=== PATIENT | female | born 1960 | race Caucasian/White ===

== ENCOUNTER 2022-10-23 07:01 | Outpatient (CLI) | payer BC, SELFPAY ==
--- NOTE | 2022-10-23 08:28 | W.ANESCHARGE ---
Anesthesia Charges Start Date/Time Anesthesia Start Date: 10/23/22 Anesthesia Start Time: 07:55 Stop Date/Time Anesthesia Stop Date: 10/23/22 Anesthesia Stop Time: 08:25
== END 2022-10-23 07:02 | disposition home or self-care (01) ==
PROVIDERS: PCP Physician Assistant; Visit Provider Internal Medicine Gastroenterology
DX: Z12.11 Encounter for screening for malignant neoplasm of colon (principal); K63.5 Polyp of colon
CPT/HCPCS: 00811; 45385; 88305; J2704

== ENCOUNTER 2022-11-14 16:11 | Outpatient (RCR) | payer BC, SELFPAY | END 2023-01-05 16:20 | disposition home or self-care (01) | PROVIDERS: PCP Physician Assistant; Visit Provider Family Medicine | DX: M18.0 Bilateral primary osteoarthritis of first carpometacarpal joints (principal); Z51.89 Encounter for other specified aftercare | CPT/HCPCS: 97035; 97166 ==

== ENCOUNTER 2023-01-16 09:45 | Outpatient (RCR) | payer BC, SELFPAY | END 2023-04-12 14:12 | disposition home or self-care (01) | PROVIDERS: PCP Physician Assistant; Visit Provider Family Medicine | DX: M79.605 Pain in left leg (principal); M25.552 Pain in left hip; M79.18 Myalgia, other site; M18.0 Bilateral primary osteoarthritis of first carpometacarpal joints; Z51.89 Encounter for other specified aftercare | CPT/HCPCS: 97110; 97140; 97162 ==

== ENCOUNTER 2023-12-24 09:01 | Outpatient (CLI) | payer BC, SELFPAY | END 2023-12-24 09:02 | disposition home or self-care (01) | LOC: WOUND 09:01 | PROVIDERS: PCP Physician Assistant; Visit Provider Nurse Practitioner Family | DX: L76.12 Accidental puncture and laceration of skin and subcutaneous tissue during other procedure (principal) | CPT/HCPCS: G0463 ==

== ENCOUNTER 2024-08-12 09:15 | Outpatient (RCR) | payer BC, SELFPAY | END 2024-08-12 15:08 | disposition home or self-care (01) | PROVIDERS: PCP Physician Assistant | DX: M18.11 Unilateral primary osteoarthritis of first carpometacarpal joint, right hand (principal); M25.641 Stiffness of right hand, not elsewhere classified; M25.631 Stiffness of right wrist, not elsewhere classified; R53.1 Weakness; Z51.89 Encounter for other specified aftercare | CPT/HCPCS: 97035; 97110; 97140; 97165; 97530; L3806; L3913; X5282 ==

== ENCOUNTER 2025-01-18 14:48 | Outpatient (CLI) | payer BC, SELFPAY | END 2025-01-18 14:49 | disposition home or self-care (01) | LOC: AMB 01-20 09:45 | PROVIDERS: PCP Family Medicine; Visit Provider Emergency Medicine Emergency Medical Services | DX: S99.912A Unspecified injury of left ankle, initial encounter (principal); W10.8XXA Fall (on) (from) other stairs and steps, initial encounter; Y92.008 Other place in unspecified non-institutional (private) residence as the place of occurrence of the external cause | CPT/HCPCS: A0425; A0433 ==

== ENCOUNTER 2025-01-18 15:37 | Emergency (ER) | payer BC, SELFPAY ==
[2025-01-18] VITALS (27 sets, daily range): BP systolic 131–157; BP diastolic 56–94; PULSE 87–123; RESP 16; TEMP 35.6; O2SAT 94–100; BMI 33.8
--- NOTE | 2025-01-18 15:40 | CRLHL7_ITS ---
For Patients: As a result of the Century Cures Act, medical imaging exams and procedure reports are released immediately into your electronic medical record. You may view this report before your referring provider. If you have questions, please contact your health care provider. Indication: .FALL, DEFORMITY, ALREADY REDUCED Technique: Views two left ankle. Comparison: None. Findings/Impression: Post splinting and reduction distal fibular and medial malleolar fractures. Associated soft tissue swelling. Bony mineralization is age-appropriate. Dictated by Scott Almanzar MD @ 01/18/2025 4:31:03 PM (Electronically Signed)
--- OUTSIDE RECORDS SUMMARY | 2025-01-18 15:40 | XMS_ITS | Clinical Summary ---
Author Organization [facility] Address [address] [place] [address] Care Team Providers Care Hide And Skin Fleshing Machine Operator Name Role Phone Lizette Kim Nolvia SR. DIRECTOR Unavailable [phone] Unavailable [phone] Remi Adair RN Unavailable China Yu DO Primary Care Provider [phone] Allergies Active Allergy Reactions Criticality Noted Date Comments Amoxicillin Hives 11/13/2007 Amoxicillin-Pot Clavulanate Hives 11/13/19 08 Pseudoephedrine Flushing 11/13/2007 Medications celecoxib (CELEBREX) 100 mg capsuleIndications: Primary osteoarthritis of both first carpometacarpal joints Take 1 Capsule (100 mg) by mouth 2 times daily if needed for Pain. 60 Capsule 2 03/25/20 24 Active cyclobenzaprine 10 mg tabletIndications:N octurnal leg cramps TAKE 1 TABLET(10 MG) BY MOUTH AT BEDTIME NEEDED FOR MUSCLE SPASM. MAY. MAKE YOU DROWSY 60 Tablet 2 07/26/19 25 Active metFORMIN 500 mg Extended-Release tabletIndications:O besity (BMI 30.0-34.9) Take one tablet with your evening meal x 14 days, then increase to two tablets. 180 Tablet 09/18/19 25 Active Additional Information Patient taking differently: 1,000 mg DAILY WITH EVENING MEAL, Take one tablet with your evening meal x 14 days, then increase to two tablets., Reported on 11/26/2024 phentermine (ADIPEX-P) 37.5 mg tabletIndications:O besity (BMI 30.0-34.9) TAKE 1 TABLET(37.5 MG) BY MOUTH DAILY IN THE MORNING 30 Tablet 1 11/18/19 25 Active topiramate 25 mg tabletIndications:O besity (BMI 30.0-34.9) Take 1 Tablet (25 mg) by mouth at bedtime. 90 Tablet 11/27/19 25 Active Active Problems Problem Noted Date Diagnosed Date Obesity (BMI 30.0-34.9) 06/23/2024 Arthritis of carpometacarpal (CMC) joint of righ t thumb 05/27/2024 Class 3 severe obesity witho ut serious comorbidity with body mass index (BMI) of 40.0 to 44.9 in adult, unspecified obesity type 05/12/2024 Colon polyp 10/25/2022 Overview (10/25/2022): Colonoscopy 10/2022 4-TA, repeat in 5 years, propofol Primary osteoarthritis of both first carpometaca rpal joints 10/12/2022 Overview (08/18/2023): October 2022: Right thumb only cortisone injection, has pain in both thumbs. Right thumb pain post injection had prolonged and significant improvement. August 2023: : Right thumb only cortisone injection, has pain in both thumbs. Controlled substance agreement signed 02/07/2022 Overview (02/07/2022): For Medical Weight loss. Verbal agreement. Pharmacy: [facility] [place] Weight gain 02/03/2022 Depression with anxiety 06/28/2021 Dysthymia 04/06/2021 Pap smear for cervical cancer screening 04/06/20 Overview (05/04/2021): 04/06/2021 NIL/HPV Negative. Plan: Routine screening Lumbar radiculopathy 07/03/2019 Sciatica of left side 06/29/2019 Arm pain, diffuse, left 08/06/2018 Post-menopause atrophic vaginitis 07/07/2015 Overview (08/04/2015): Starting premarin cream.DORIS Barlow ....................... 07/07/2015 9:28 AM Happy with resolve of problem. Renewal today.DORIS Barlow ....................... 08/04/2015 2:30 PM Irritability 07/07/2015 Overview (08/04/2015): Starting Citalapram.DORIS Barlow ....................... 07/07/2015 9:28 AM PHQ9 22 LEONIDAS 14.DORIS Barlow ....................... 07/07/2015 9:29 AM PHQ9 down to 3 on re screen 08/04/2015.DORIS Barlow ....................... 08/04/2015 3:06 PM Hypovitaminosis D 07/07/2015 Overview (08/04/2015): Apr Repeat today. 18.3 (on 5000 iu OTC daily little improvement) LEANNE Barlow ....................... 07/07/2015 9:29 AM Begin Vitamin D 50,000 iu for 8 weeks and repeat Vitamin D level end of September and annual April..DORIS Barlow ....................... 08/04/2015 2:31 PM Obesity 05/21/2011 Family hx-breast malignancy 05/21/2011 Resolved Problems Problem Noted Date Diagnosed Date Resolved Date Obesity, Class II, BMI 35-39.9 02/03/2022 06/23/2024 Depression 08/04/2015 08/04/2015 Overview (08/04/2015): PHQ9 07/12/2015 Score 22 PHQ9 08/04/2015 score 3 Encounters Date Type Department Care Team Description 11/26/2024 7:30 AM CDT Telemedicine [facility] [place] [place] [address] [place] [address] Smead, Lizette Nolvia, SR. DIRECTOR Telehealth (No vitals taken); Weight (Follow up) 11/25/2024 8:00 AM CDT Telemedicine [facility] - [facility] [address] [address] Alexia Cerda, RD Medical Nutrition Therapy (Follow up) 11/21/2024 Travel 11/11/2024 Refill [facility] [place] [place] [address] [place] [address] Smead, Lizette Nolvia, SR. DIRECTOR Refill Request (Phentermine) 11/09/2024 Refill [facility] [place] [place] [address] [place] [address] Smead, Lizette Nolvia, SR. DIRECTOR Refill Request (Metformin) from Last 3 Months Immunizations Immunization Administration Dates Next Due COVID-19 vaccine ([facility] 30mcg/0.3mL) PF, MDV 08/16/2020,07/26/2020 Influenza, IIV3 (Age >=3 years) 02/22/2017,01/22,01/31/2011 Influenza, IIV4 03/07/2021,,05/03/2018,2015 Influenza, IIV4 (=>6mos) MDV 02/02/2015 Influenza, IIV4 (Age 6-35 Mos) 02/03/2015 Tdap 04/27/2015,06/30/2008 Zoster (Shingrix-RZV, recombinant) 01/17/2022, Family History Medical History Relation Name Comments Other Brother 1 fibromyalgia Other Brother 2 open heart surg jluis 2 valves replaced Heart attack Father Other Father age 54 of brain aneurysm Cancer-breast Maternal Grandmother Deepa Cancer-colon Maternal Uncle Ben Cancer-breast Mother Faustina 72 Cancer-breast Other maternal cousi n 47 Relation Name Status Comments Brother 1 Alive Brother 2 Father Maternal Grandmother Deepa Maternal Uncle Ben Mother Faustina Other Social History Tobacco Use Types Packs/Day Years Used Date Smoking Tobacco: Never Smokeless Tobacco: Never Tobacco Cessation:Counseling Given: Yes Alcohol Use Standard Drinks/Week Comments Not Currently 0 (1 standard drink = 0.6 oz pur e alcohol) PHQ-2 Answer Date Recorded PHQ-2 TOTAL SCORE 0 06/11/2023 Social Connections Answer Date Recorded Do you often feel lonely or isolated from those around you? 0 06/23/2024 Alcohol Use Answer Date Recorded How often do you have a drink containing alcohol ? 2 07/10/2022 How many drinks containing a lcohol do you have on a typical day when you are drinking? 0 07/10/2022 How often do you have five or more drinks on one occasion? 0 07/10/2022 Financial Resource Strain Answer Date R ecorded Difficulty of Paying Living Expenses 3 06/23/2024 Difficulty of Paying Living Expenses Not on file 06/23/2024 Food Insecurity Answer Date Recorded Do you worry your food will run out before you are able to buy more? 1 06/23/2024 Transportation Needs Answer Date Record ed Does lack of transportation keep you from medica l appointments? 1 06/23/2024 Does lack of transportation keep you from work, meetings or getting things that you need? 1 06/23/2024 Housing Stability Answer Date Recorded What is your housing situation today? 1 06/23/2024 Utilities Answer Date Recorded Do you have trouble paying f or utilities (for example, heat, electricity, water, phone)? 1 06/23/2024 Comments No Sex and Gender Information Value Date Recorded Sex Assigned at Not on file Legal Sex Female 7:01 AM KEY ACCOUNT DIRECTOR Gender Identity Not on file Sexual Orientation Not on file Obstetrics History Para Term AB IAB SAB Ectopic Multiple Livin g Live Births 3 3 3 3 Date Outcome GA Total Labor Labor/2nd/3rd Weight Sex Type Anes PTL Chary A1 A5 Name Clin Term Term Term Last Filed Vital Signs Vital Sign Reading Time Taken Comments Blood Pressure 110/77 09/17/2024 7:00 AM CDT Pulse 81 07/24/2024 3:41 PM CDT patient reported Temperature 36.2 C (97.2 F) 05/27/2024 10:31 AM KEY ACCOUNT DIRECTOR Respiratory Rate 16 05/27/2024 11:2 5 AM KEY ACCOUNT DIRECTOR Oxygen Saturation 98% 06/23/2024 10: 13 AM KEY ACCOUNT DIRECTOR Inhaled Oxygen Concentration - - Weight 81.3 kg (179 lb 3.2 oz) 11/26/2024 7:00 AM CDT Height 157.5 cm (5' 2.01) 11/26/2024 7 :00 AM CDT Body Mass Index 32.77 11/26/2024 7:00 AM CDT Plan of Treatment Health Maintenance Due Date Last Done Comments HIV for age 15-65 11/30/1974 Hepatitis C screening for age 18-79 11/30/1977 Pneumococcal series for age 50+ (1 of 1 - PCV) 11/30/2009 RSV vaccine for adults or (1 - Risk 60-74 years 1-dose series) 2019 Depression screening for age 12+ 06/11/2024 06/11/2023, 06/11/2023, 02/03/2022, Additional history exists DEXA/DXA scan for age 65+ 11/30/2024 COVID-19 vaccine series (2024- season) 2025 03/07/2021, 08/16/2020, 07/26/2020 Influenza Vaccine (#1) 2025 , 02/12/2021, 05/03/2018, Additional history exists Mammogram for age 45-75 03/24/2025 03/24/20 24, 10/13/2022, 02/09/2021, Additional history exists Tetanus booster 04/27/2025 04/27/2015, 06/30/2008 BMI (ht and wt on same day) for age 18+ 11/26/2025 11/26/2024, 11/25/2024, 09/17/2024, Additional history exists Pap test for age 21-65 04/06/2026 , 04/06/2021, 04/27/2015, Additional history exists Lipids for age 45-75 02/08/2027 02/08/2022, 04/06/2021, 04/27/2015 Colonoscopy through age 75 10/24/2027 10/23/2022, Zoster (shingles) series for age 50+ Completed 01/17/2022, 10/11/2021 Hepatitis B series for 19+ Aged Out N o longer eligible based on patient's age to complete this topic Medical Devices Implanted Type Area Irrigation Equipment Installer Device Identifier Shelf Expiration Date Model / Serial / Lot Stent Contour [id number] - [id number] Implanted:Qty: 1 on 11/15/2007 at [facility] Left: Ureter [facility] 10/16/2011 [id number] / / [id number] Screw Bio Tenodesis 3x8mm - [id number] Implanted:Qty: 1 on 05/27/2024 by Derrick Rodrigez MD at [facility] Right: Thumb [employer] 12/05/2027 [id number] / / [id number] Procedures Procedure Name Priority Date/Time Associated Diagnosis Comments XR MAMMO CROW BILAT SCREEN Routine 03/24/2024 7:15 AM KEY ACCOUNT DIRECTOR Encounter for screening mammogram for malignant neoplasm of breast COLONOSCOPY SCREENING Routine 10/23/2022 12:00 AM CDT Screening for colon cancer LIPID PANEL W REFLEX MEASURED LDL Routine 02/08/2022 8:43 AM CDT Obesity, Class II, BMI 35-39.9 Weight gain HPV HIGH RISK Routine 04/06/2021 10:20 AM KEY ACCOUNT DIRECTOR Encounter for screening for cervical cancer from Last 3 Months or Most Recently Relevant to Health Maintenance Results * XR MAMMO CROW BILAT SCREEN (03/24/2024 7:15 AM KEY ACCOUNT DIRECTOR) Anatomical Region Laterality Modality BREASTS, Breast Left, Breast Right Bilateral Mammography Impressions 03/24/2024 3:51 PM KEY ACCOUNT DIRECTOR There is no radiographic evidence for malignancy. Recommend annual mammograms. MAMMOGRAM ASSESSMENT: ACR 1 Negative PATIENTS: You will also receive a letter with your examination results in an easy to read format. If you have questions about your results, please contact your referring provider. Narrative 03/24/2024 3:51 PM KEY ACCOUNT DIRECTOR For Patients: As a result of the Century Cures Act, medical imaging exams and procedure reports are released immediately into your electronic medical record. You may view this report before your referring provider. If you have questions, please contact your health care provider. XR MAMMO CROW BILAT SCREEN [[id number]] CLINICAL HISTORY: This is an asymptomatic 63 y.o. patient. INDICATION FOR EXAM: Mammogram Screening. TECHNIQUE: CC & MLO views were obtained. This study was evaluated with the assistance of Computer-Aided Detection. Breast Tomosynthesis was used in interpretation. COMPARISON FILM: Yes 10/13/22 [facility] 02/09/21 [facility] FINDINGS: There are scattered areas of fibroglandular density. There are no dominant masses, suspicious micro calcifications or areas of architectural distortion. Enrike Ramirez MD MAMMO Final Res ult * COLONOSCOPY SCREENING (10/23/2022 12:00 AM CDT) Yamel DUFFY GI PROCEDURE ORD Final Result * LIPID PANEL W REFLEX MEASURED LDL (02/08/2022 8:43 AM CDT) CHOLESTEROL,TOTAL 189 100 - 199 mg/dL 02/09/2022 5:05 AM CDT [facility] TRIGLYCERIDES 75 <150 mg/dL 02/09/2022 5:05 AM CDT [facility] HDL CHOLESTEROL 49 >40 mg/dL 5:05 AM CDT [facility] NON-HDL CHOLESTEROL 140 <145 mg/dl 02/09/2022 5:05 AM CDT [facility] CHOL/HDL RATIO 3.86 <4.50 02/09/2022 5:05 AM CDT [facility] LDL CHOLESTEROL 125 <=130 mg/dL 02/09/2022 5:05 AM CDT [facility] VLDL CHOLESTEROL 15 <=30 mg/dL 02/09/2022 5:05 AM CDT [facility] PROVIDER ORDERED STATUS RANDOM 02/09/2022 5:05 AM CDT [facility] Blood BLOOD SPECIMEN / Unknown Venipuncture / Unknown 02/08/2022 8:43 AM CDT 02/08/2022 8:45 AM CDT Lizette Kim SR. DIRECTOR CHEMISTRY Final Resul t [facility] [address] [place] [address], * HPV HIGH RISK (04/06/2021 10:20 AM KEY ACCOUNT DIRECTOR) TYPE 16 Negative Negative 04/08/2021 11:36 AM KEY ACCOUNT DIRECTOR [facility] TYPE 18 Negative Negative 04/08/2021 11:36 AM KEY ACCOUNT DIRECTOR [facility] OTHER HIGH RISK TYPES Negative Negative 04/08/2021 11:36 AM KEY ACCOUNT DIRECTOR [facility] Other (Cervical) Non-Blood / Unknown 04/06/2021 10:20 AM KEY ACCOUNT DIRECTOR 04/07/2021 8:47 AM KEY ACCOUNT DIRECTOR Narrative [facility] - 04/08/2021 11:36 AM KEY ACCOUNT DIRECTOR HPV types 16, 18, 31, 33, 35, 39, 45, 51, 52, 56, 58, 59, 66 and 68 DNA were undetectable or below the pre-set threshold. Methodology: Annmarie Jose Luis 4800 HPV Test Zoraida Spence UNDER SEAL OPERATOR MICROBIOLOGY Final Result [facility] [address] [place] [address], from Last 3 Months or Most Recently Relevant to Health Maintenance Insurance [facility] Advance Directives * Full Code (Latest Code Status on File) Date Activated Date Inactivated Comments 05/27/2024 7:15 AM 05/27/2024 4:23 PM Question Answer Comments Code Status Discussion: Reviewed Preferences * Full Code Date Activated Date Inactivated Comments 07/03/2019 1:36 PM 07/04/2019 8:11 PM * Full Code Date Activated Date Inactivated Comments 06/29/2019 5:41 AM 06/30/2019 4:54 PM Care Teams Hide And Skin Fleshing Machine Operator Relationship Specialty Start Date End Date China Yu DO [address] [place] [address] PCP - General Family Practice 06/23/24 Lizette Kim CNS [address] [place] [address] Clinical Nurse Specialist 02/03/[address] [facility] [place] [address] Civil Drafter 02/03/22 Remi Adair, RN [address] [place], [place] [address] Registered Nurse 02/03/22
--- NOTE | 2025-01-18 16:21 | W.ED.CHARTNO ---
ED Chart Note Chart Note Details Date: 01/18/25 Details: I helped the attending physician, patient received medications and went apneic, I was able to bag the patient, saturations got as low as 82% on room air, we inserted a nasal trumpet airway. I was able to bag the patient back up to 99%. Total time attending patient was 30 minutes, due to respiratory arrest is Assessment: Respiratory arrest Plan: Patient now spontaneously breathing, reduction in please see dictation by attending physician. No complications
--- NOTE | 2025-01-18 16:28 | ED.GENADULT ---
HPI - General Adult General Chief complaint: Extremity Pain/Injury, Lower Stated complaint: L ankle injury Time Seen by Provider: 01/18/25 15:40 History of Present Illness HPI narrative: pt. presents to the ED today via EMS after a fall. pt. was carrying a quilt down the stairs got tangled up in the quilt and slipped down approx. 3 stairs. there was obvious deformity in the left ankle when EMS arrived. pt. remembers everything, denies LOC, Thinner, or hitting their head. 64-year-old woman presenting to the emergency department via EMS following an apparent injury to her left ankle. Apparently fell down a few stairs injuring her left ankle noting obvious deformity. This appears to have been a trip and fall type event. She has denied loss of consciousness. Denies head neck or back pain. No abdominal pain. Currently denies any other injuries although is crying out in pain related presumably to the left ankle. Was noted by EMS to have received 50 mcg of fentanyl and 50 mg of ketamine. She was briefly apneic thought secondary to ketamine which improved with initiation of placement of nasal trumpet; this was not ultimately necessary. Denies any medications nor treatable diagnoses. History of surgical repair on the right hand/thumb as indicated later. Denies any cardiac or pulmonary problems. Related Data Home Medications ?Medication ?Instructions ?Recorded ?Confirmed cyclobenzaprine 10 mg tablet 10 mg PO QPM 01/18/25 01/19/25 celecoxib 100 mg capsule 100 mg PO BID 01/19/25 01/19/25 metformin 500 mg tablet,extended mg PO 01/19/25 01/19/25 release 24 hr ondansetron HCl 4 mg tablet mg PO 01/19/25 01/19/25 phentermine 37.5 mg tablet 37.5 mg PO DAILY 01/19/25 01/19/25 topiramate 25 mg tablet 25 mg PO DAILY 01/19/25 01/19/25 triamcinolone acetonide 0.5 % topical 3XD 01/19/25 01/19/25 topical ointment Previous Rx's ?Medication ?Instructions ?Recorded tramadol 50 mg tablet 50 mg PO Q6H PRN pain #20 tabs 01/19/25 Allergies Allergy/AdvReac Type Severity Reaction Status Date / Time amoxicillin Allergy Severe Hives Verified 01/18/25 16:05 clavulanic acid (From Allergy Severe hives Verified 01/18/25 16:05 Augmentin) pseudoephedrine (From Allergy Severe racing Verified 01/18/25 16:05 Sudafed) heart Review of Systems Status of ROS: Reports: 6 or more systems reviewed and unremarkable except as noted in History and below Exam Narrative: Exam Narrative: As noted is crying out in apparent pain. IV was already established with EMS. Placed on oximetry. Appears to be breathing well. Lungs are clear. Heart in elevated to tachycardic rate and regular rhythm. Obviously deformed left ankle with medial aspect of tibia tenting the medial skin. Some bruising here. I do not appreciate any abrasions around the ankle. She does have her shoe in place. Initially did not assess pulses for this reason intense pain. On repeat exam, head is atraumatic. Neck is supple nontender. Back nontender without deformity. No pain to palpation about the abdomen. No pain to palpation about the hips or the right leg or either knee. No discomfort to palpation over the shoulders clavicles or arms. Const: Vital Signs, click to edit/add: Vital Signs - 24 hr 01/18/25 15:40 01/18/25 15:51 01/18/25 15:56 Temperature 96.1 F L Pulse Rate 123 H 114 H Pulse Rate [Pulse Oximeter] 101 H Respiratory Rate 16 Blood Pressure 150/83 H Blood Pressure [Ri ght Upper Arm] 150/83 H Pulse Oximetry 98 94 99 Oxygen Delivery Me thod Nasal Cannula Ambu-Bag Ambu-Bag Oxygen Flow Rate 3 15 15 01/18/25 16:00 01/18/25 16:02 01/18/25 16:12 Temperature Pulse Rate 114 H 112 H 102 H Pulse Rate [Pulse Oximeter] Respiratory Rate Blood Pressure 149/94 H 157/87 H Blood Pressure [Ri ght Upper Arm] Pulse Oximetry 100 95 97 Oxygen Delivery Me thod Ambu-Bag Ambu-Bag Ambu-Bag Oxygen Flow Rate 15 15 15 01/18/25 16:15 01/18/25 16:22 01/18/25 16:30 Temperature Pulse Rate 100 97 96 Pulse Rate [Pulse Oximeter] Respiratory Rate Blood Pressure 155/74 H Blood Pressure [Ri ght Upper Arm] Pulse Oximetry 97 97 97 Oxygen Delivery Me thod Ambu-Bag Ambu-Bag Ambu-Bag Oxygen Flow Rate 15 4 2 01/18/25 16:32 01/18/25 16:42 01/18/25 16:45 Temperature Pulse Rate 97 92 92 Pulse Rate [Pulse Oximeter] Respiratory Rate Blood Pressure 142/75 H 145/77 H Blood Pressure [Ri ght Upper Arm] Pulse Oximetry 96 96 95 Oxygen Delivery Me thod Ambu-Bag Ambu-Bag Ambu-Bag Oxygen Flow Rate 2 2 2 01/18/25 16:52 01/18/25 17:00 01/18/25 17:02 Temperature Pulse Rate 95 91 90 Pulse Rate [Pulse Oximeter] Respiratory Rate Blood Pressure 142/78 H 132/77 Blood Pressure [Ri ght Upper Arm] Pulse Oximetry 97 96 97 Oxygen Delivery Me thod Ambu-Bag Ambu-Bag Ambu-Bag Oxygen Flow Rate 2 2 2 Documenting provider has reviewed patient's vital signs: yes Course Vital Signs Vital signs: Initial Vital Signs Temperature 96.1 F L 01/18/25 15:40 Temperature Source Temporal Artery Scan 01/18/25 15:40 Pulse Rate 101 H 01/18/25 15:40 Respiratory Rate 16 01/18/25 15:40 Blood Pressure 150/83 H 01/18/25 15:40 Blood Pressure Mean 105 01/18/25 15:40 Blood Pressure Position Semi-Fowlers 01/18/25 15:40 Pulse Oximetry 98 01/18/25 15:40 Oxygen Delivery Method Nasal Cannula 01/18/25 15:40 Oxygen Flow Rate 3 01/18/25 15:40 Vital Signs Temperature 96.1 F L 01/18/25 15:40 Pulse Rate 101 H 01/18/25 15:40 Respiratory Rate 16 01/18/25 15:40 Blood Pressure 150/83 H 01/18/25 15:40 Pulse Oximetry 98 01/18/25 15:40 Oxygen Delivery Method Nasal Cannula 01/18/25 15:40 Oxygen Flow Rate 3 01/18/25 15:40 Temperature 96.1 F L 01/18/25 15:40 Pulse Rate 90 01/18/25 18:45 Respiratory Rate 16 01/18/25 15:40 Blood Pressure 136/56 L 01/18/25 17:42 Pulse Oximetry 95 01/18/25 18:45 Oxygen Delivery Method Nasal Cannula 01/18/25 18:02 Oxygen Flow Rate 2 01/18/25 18:02 Medications Administered Medications: Discontinued Medications Generic Name Dose Route Start Last Admin Trade Name Ada PRN Reason Stop Dose Admin Fentanyl 100 mcg 01/18/25 15:40 01/18/25 15:50 Fentanyl 100 Mcg/2 Ml Inj IVP 01/18/25 15:41 50 mcg ONCE ONE Administration Sodium Chloride 1,000 mls @ 1,000 mls/hr 01/18/25 15:42 01/18/25 18:50 0.9 % Sodium Chloride 1000 Ml IV 01/18/25 16:41 Infused .Q1H ONE Infusion Ketamine HCl 50 mg 01/18/25 15:41 01/18/25 15:55 Ketamine Hcl 100 Mg/Ml Inj IVP 01/18/25 15:42 Not Given ONCE ONE Ketorolac Tromethamine 30 mg 01/18/25 18:15 01/18/25 18:24 Ketorolac 30 Mg/Ml Inj IVP 01/18/25 18:16 30 mg ONCE ONE Administration Ondansetron HCl 4 mg 01/18/25 17:52 01/18/25 17:55 Ondansetron 2 Mg/Ml Inj IVP 01/18/25 17:53 4 mg ONCE ONE Administration Medical Decision Making MDM Narrative Medical decision making narrative: Due to degree of discomfort as demonstrated opted to give further medication while still on EMS cot before transfer to the bed and further examination. Given another 50 mg of ketamine and initiated on 100 mics of fentanyl. Ultimately only received 50 mics of fentanyl as did stop responding, became apneic again in the midst of this injection having already received the ketamine. Pain appeared to have been controlled. Continued to have strong pulses and initially confirmed strong dorsalis pedis pulse on the left foot following removal of her shoe. Had anticipated need for reduction of presumed dislocation of the left ankle possible fractures but prior to verifying presence or absence of fractures with imaging, did take opportunity here to reduce this ankle as pulses more difficult to palpate and was already quite sedate. Reduction appeared successful and appears to have been well tolerated. I did place padded Harry Cortez splint. Did require respiratory support initially placing a nasal trumpet. Began bagging. Oxygen sats got as low briefly as 81 or 82%. Airway was assisted by EMS and then further by Dr. Zuniga. Two-view of the post reduction of the left ankle independently reviewed by me shows trimalleolar fracture with comminution. Presumed mortise disruption. Looks to have been well reduced/nearly anatomic. Soft tissue swelling. Verified strong pulses, warm toes after reduction. Did discuss this case with Orthopedics on-call. Anticipate close follow-up in clinic and likely surgical intervention. Did spontaneously alert over time. Discomfort is markedly improved. Supporting own airway and spontaneously conversant. Did have episode of vomiting. Given Zofran. No further events during time of monitoring in the emergency department on engine monitor and oximetry. Discharge with crutches to the care of her son. As discussed you dislocated your ankle and in the process fractured your ankle as well. We have reduced it here in the emergency department. I have since spoken with Orthopedics today. Expect a call from them tomorrow to arrange follow-up in clinic this coming week. If you do not hear from them by noon tomorrow go ahead and call [phone]. Use the crutches to not bear weight on your foot until follow-up with further recommendations. Elevate for comfort. Can take up to 800 mg of ibuprofen or up to 1000 mg of acetaminophen per dose. Per your preference I am also prescribing some tramadol from [facility]. Medical Records Medical records reviewed: Yes I reviewed the patient's medical records Critical Care Time Critical Care Time Critical Care Time: Yes Attestation: The patient required my highest level preparedness to intervene emergently and I personally spent this critical care time directly and personally managing the patient. This critical care time included: Obtaining a history; Examining the patient; Pulse oximetry; Ordering and reviewing of studies; Arranging urgent treatment with development of a management plan; Evaluation of patients response to treatment; Frequent reassessment discussions with other providers. This critical care time was performed to assess and manage the high probability of imminent life-threatening deterioration that could result in multiorgan failure. It was exclusive of separate billable procedures and treating other patients and teaching time. Total Critical Care Time in Minutes: 45 Discharge Plan Discharge Clinical Impression: Fracture dislocation of ankle, Respiratory arrest Patient Disposition: Home w/ Parent or Adult Condition: Improved Additional Instructions: As discussed you dislocated your ankle and in the process fractured your ankle as well. We have reduced it here in the emergency department. I have since spoken with Orthopedics today. Expect a call from them tomorrow to arrange follow-up in clinic this coming week. If you do not hear from them by noon tomorrow go ahead and call [phone]. Use the crutches to not bear weight on your foot until follow-up with further recommendations. Elevate for comfort. Can take up to 800 mg of ibuprofen or up to 1000 mg of acetaminophen per dose. Per your preference I am also prescribing some tramadol from [facility]. Prescriptions: No Action ondansetron HCl 4 mg tablet PO topiramate 25 mg tablet 25 mg PO DAILY triamcinolone acetonide 0.5 % ointment topical 3XD phentermine 37.5 mg tablet 37.5 mg PO DAILY celecoxib 100 mg capsule 100 mg PO BID metformin 500 mg tablet extended release 24 hr PO tramadol 50 mg tablet 50 mg PO Q6H PRN (Reason: pain) Qty: 20 0RF cyclobenzaprine 10 mg tablet 10 mg PO QPM Follow Up/Referrals: Yamel Munroe PA-C [Primary Care Provider, Family Practice] Stand Alone Forms: [employer] Info Instructions
[2025-01-18] MEDS: ONDANSETRON 2 MG/ML inj 4 MG IVP (17:55)
== END 2025-01-18 19:08 | disposition home or self-care (01) ==
PROVIDERS: Emergency Provider Family Medicine; PCP Physician Assistant
DX: S82.852A Displaced trimalleolar fracture of left lower leg, initial encounter for closed fracture (principal); R09.2 Respiratory arrest; W10.9XXA Fall (on) (from) unspecified stairs and steps, initial encounter
CPT/HCPCS: 27818; 73600; 94761; 99284; 99291; J1885; J2405; J3010; J7030

== ENCOUNTER 2025-01-23 07:15 | Day surgery (SDC) | payer BC, SELFPAY ==
[2025-01-23] VITALS (16 sets, daily range): BP systolic 101–144; BP diastolic 56–92; PULSE 76–103; RESP 12–16; TEMP 36.6–37.2; O2SAT 93–98; BMI 32.6
[2025-01-23] MEDS: LACTATED RINGERS 1000 ML 1,000 ML 100 ML IV ×2 (08:09→10:10)
[2025-01-23] MEDS: SODIUM CHLORIDE 0.9 % (FLUSH) 10 ML SYRINGE IVF (08:09)
--- NOTE | 2025-01-23 08:32 | W.PM.H&PU ---
History & Physical Update History & Physical Update H&P Reviewed and patient assessed: No changes noted
--- NOTE | 2025-01-23 08:32 | PM.ORPRC ---
Procedure Note Date of procedure: 01/23/25 Procedure: PREOPERATIVE DIAGNOSES: 1. Left trimalleolar ankle fracture, closed, displaced POSTOPERATIVE DIAGNOSES: 1. Left trimalleolar ankle fracture, closed, displaced NAME OF OPERATION: 1. Left trimalleolar ankle fracture open reduction internal fixation without fixation of posterior malleolus SURGEON: Erich Church MD ASSISTANT PROFESSOR OF DRAMA: Janel Rod P.A.-C.; An advertising sales assistant was critical for this case to aide in patient positioning, leg manipulation, tissue retraction, closure, and splinting. ANESTHESIA: Spinal plus regional nerve blocks. EBL: 20 mL IMPLANTS: Arthrex 5 hole distal fibular locking plate with 3.0 mm distal locking screws, 3.5 mm proximal locking screws and 3.5mm proximal nonlocking screw for lateral malleolus fixation; 4.0 mm partially-threaded cannulated screws x2 for medial malleolar fixation. TOURNIQUET: 100 minutes at 250 mmHg INDICATIONS: The patient is a pleasant 64-year-old female who sustained a left ankle injury in the recent past with difficulty bearing weight. Workup included x-rays, which revealed an unstable trimalleolar ankle fracture. Given the unstable nature of this injury, surgery was recommended to improve alignment, stabilize the ankle, and allow for healing and more anatomic position. Prior to surgery, the risks and benefits of the procedure were discussed with the patient, all questions were answered, and informed consent was obtained. FINDINGS: Closed, displaced, oblique Boland B lateral malleolus fracture; closed, displaced, transverse medial malleolus fracture; and small displaced posterior malleolus fracture. PROCEDURE: Patient seen preoperatively and operative site was marked. Adductor canal and popliteal nerve blocks were performed by anesthesia staff. The patient was then brought to the operating room and placed supine on the operating table. Induction of anesthesia was undertaken. The operative extremity was prepped and draped in the usual sterile fashion. 2 g IV Ancef was administered preoperatively for prophylaxis. A surgical time-out was performed confirming patient identity, surgical site, and surgical procedure. The operative extremity was elevated and exsanguinated, and the tourniquet inflated to 250 mmHg. A longitudinal incision was made along the posterior border of the distal fibula. Incision was carried through the skin and subcutaneous tissues, while protecting any crossing neurologic structures. Small traversing veins were cauterized. The fracture was encountered, and cleared of interposed periosteum and fracture hematoma. Fracture site was then thoroughly irrigated with normal saline. The fracture was reduced and temporarily held with reduction clamps. A 2.7 mm interfragmentary lag screw was drilled and placed perpendicular across the fracture, however, this screw did not get good purchase and was subsequently removed. A 5-hole distal fibular locking plate was selected and provisionally fixed with BB tacks. Fluoroscopic imaging confirmed anatomic reduction of the distal fibula fracture and good placement of the plate. The plate was then fixed proximally with a bicortical 3.5 mm nonlocking screw. Distal screw holes were then filled with unicortical 3.0 mm locking screws. Two additional bicortical 3.5 mm locking screws were then placed proximally. Fluoroscopic imaging was used to confirm correct placement in length of the screws and plate. Following C-arm confirmation of appropriate distal fibula plate position and screw length, attention was turned to the fixation of the medial malleolus fracture. A longitudinal incision was made overlying the medial malleolar fracture. Blunt dissection was utilized to dissect through the subcutaneous tissues to allow us to protect the crossing neurovascular structures. The fracture was identified and cleared of interposed periosteum and fracture hematoma. The fracture was reduced and held with a pointed reduction clamp. Two guide pins for the 4-0 cannulated screws were then drilled in a retrograde fashion across the fracture. Fluoroscopic imaging confirmed anatomic reduction of the fracture and good placement of the pins. The pins were then overdrilled and partially-threaded 4.0 mm cannulated screws with washers were secured into position over the pins. Guide pins were removed . Fluoroscopic imaging confirmed anatomic reduction with good compression fracture and good placement of the screws. After confirming appropriate reduction and positioning of the plate and screws using fluoroscopic imaging, an external rotation stress was placed on the ankle to test for syndesmosis stability. Stress imaging revealed a symmetric mortise with no widening of the syndesmosis. At this stage, the wounds were thoroughly irrigated with normal saline. Laterally, deep fascia was closed over the plate using 0 Vicryl [id number] interrupted sutures. Medially, the deep fascia was also closed with 0 Vicryl [id number] interrupted sutures. The tourniquet was then released . Total tourniquet time was 100 minutes. Hemostasis was achieved electrocautery. Skin incisions were then closed with 2-0 Vicryl inverted after subcutaneous stitches followed by 3-0 nylon interrupted sutures. Sterile dressings were applied followed by well-padded short-leg splint. The patient was awoken from anesthesia and transferred to the PACU in stable condition. PLAN: 1. Ice and elevation of operative extremity for pain and swelling. 2. Tylenol, Celebrex, and tramadol as needed for pain. 3. Toe-touch weight-bearing operative extremity. 4. Keep splint clean and dry. 5. Follow up in Orthopedic Clinic in 10-14 days for wound check and splint removal.
--- NOTE | 2025-01-23 08:36 | SUR.PREOP ---
TIME?OUT:?0836 PT/RN/MDA?VERIFICATION?OF?SURGICAL?SITE-LEFT ANKLE,?PROCEDURE,?AND?CONSENT OBTAINED?PRIOR?TO?INVASIVE?PROCEDURE.
[2025-01-23] MEDS: MIDAZOLAM HCL 1 MG/ML inj IVP (08:37)
--- NOTE | 2025-01-23 08:45 | CRLHL7_ITS ---
For Patients: As a result of the Cures Act, medical imaging exams and procedure reports are released immediately into your electronic medical record. You may view this report before your referring provider. If you have questions, please contact your health care provider. Indication: Left Ankle ORIF Technique: Five fluoroscopic images. Fluoroscopic time 82.1 seconds. IMPRESSION: Fluoroscopic guidance for open reduction internal fixation distal tibial and fibular fractures. Dictated by Scott Burdick MD @ 01/23/2025 3:30:05 PM (Electronically Signed)
--- NOTE | 2025-01-23 10:51 | W.ANESCHARGE ---
Anesthesia Charges Start Date/Time Anesthesia Start Date: 01/23/25 Anesthesia Start Time: 08:49 Stop Date/Time Anesthesia Stop Date: 01/23/25 Anesthesia Stop Time: 12:16 Coding CPT Codes CPT Codes: ANESTH LOWER LEG BONE SURG - 95123 ([id number]) P2 - PATIENT W/MILD SYST DISEASE, QK - SMALL BUSINESS REPRESENTATIVE 2-4 CNCRNT ANES PROC, QX - TRACTOR TRAILER OPERATOR SVC W/ MD MED DIRECTION
--- NOTE | 2025-01-23 10:51 | P.ANES_ITS ---
Anesthesia Charges Start Date/Time Anesthesia Start Date: 01/23/25 Anesthesia Start Time: 08:49 Stop Date/Time Anesthesia Stop Date: 01/23/25 Anesthesia Stop Time: 12:16 Coding CPT Codes CPT Codes: ANESTH LOWER LEG BONE SURG - 08420 ([id number]) P2 - PATIENT W/MILD SYST DISEASE, QK - GENETICS TEACHER 2-4 CNCRNT ANES PROC, QX - NATIONAL EXPANSION RECRUITER SVC W/ MD MED DIRECTION
--- NOTE | 2025-01-23 11:13 | W.PM.NB ---
Nerve Block Nerve Block Time Seen by Provider: 08:45 Date Seen: 01/23/25 Type of block requested by surgeon for post-operative analgesia: popliteal Side: left Time out performed: Yes Verification of patient name: Yes Verification of date of : Yes Site marking: site marked Name of person performing procedure: Rk Continuous monitoring Was continuous monitoring of O2 sat, B/P, gambling monitor, recorded every 15 minutes?: Yes Procedure Checklist: sterile prep, needles and gloves Ultrasound guided. Images saved: Yes Medications given in 5ml increments after negative aspiration: Marcaine %: 0.25 mL: 15 and Exparel mL: 5 Needle gauge: 20 Patient tolerated procedure well: Yes Additional comments: Needle noted adjacent to nerve Block Charges Block Charge (with Pro Fee): Sciatic Nerve Use of Ultrasound Machine for Block: Yes- US Guidance/pain block
--- NOTE | 2025-01-23 11:13 | W.PM.NB ---
Nerve Block Nerve Block Time Seen by Provider: 08:45 Date Seen: 01/23/25 Type of block requested by surgeon for post-operative analgesia: adductor canal Side: left Time out performed: Yes Verification of patient name: Yes Verification of date of : Yes Site marking: site marked Name of person performing procedure: Rk Continuous monitoring Was continuous monitoring of O2 sat, B/P, leather case finisher, recorded every 15 minutes?: Yes Procedure Checklist: sterile prep, needles and gloves Ultrasound guided. Images saved: Yes Medications given in 5ml increments after negative aspiration: Marcaine %: 0.25 mL: 10 Needle gauge: 20 and Exparel mL: 5 Precedex (mcg): 25 Patient tolerated procedure well: Yes Block Charges Block Charge (with Pro Fee): Femoral Nerve Use of Ultrasound Machine for Block: Yes- US Guidance/pain block
--- NOTE | 2025-01-23 11:14 | P.ANES_ITS ---
Anesthesia Charges Start Date/Time Anesthesia Start Date: 01/23/25 Anesthesia Start Time: 08:49 Stop Date/Time Anesthesia Stop Date: 01/23/25 Anesthesia Stop Time: 12:16 Coding CPT Codes CPT Codes: ANESTH LOWER LEG BONE SURG - 22525 ([id number]) P2 - PATIENT W/MILD SYST DISEASE, QK - SWITCH HOUSE OPERATOR 2-4 CNCRNT ANES PROC, QX - DIRECTOR OF INTEGRATED MARKETING SVC W/ MD MED DIRECTION
--- NOTE | 2025-01-23 11:14 | W.ANESCHARGE ---
Anesthesia Charges Start Date/Time Anesthesia Start Date: 01/23/25 Anesthesia Start Time: 08:49 Stop Date/Time Anesthesia Stop Date: 01/23/25 Anesthesia Stop Time: 12:16 Coding CPT Codes CPT Codes: ANESTH LOWER LEG BONE SURG - 46640 ([id number]) P2 - PATIENT W/MILD SYST DISEASE, QK - PERL PROGRAMMER 2-4 CNCRNT ANES PROC, QX - RESIDENT ENGINEER SVC W/ MD MED DIRECTION
--- NOTE | 2025-02-02 11:09 | SUR.OPER ---
Confirmed with Arthrex Rep, Samson Sharp, and Vp Corporate Partnerships Nurse, Mayra, regarding the discrepancy of charting and charges for implants used. Verify correct implants used and documented correctly in patient's chart.
== END 2025-01-23 13:59 | disposition home or self-care (01) ==
LOC: OR 07:16
PROVIDERS: PCP Family Medicine; Visit Provider Orthopaedic Surgery
PROC: (CPT 27822; principal; 2025-01-23 08:45)
DX: S82.852A Displaced trimalleolar fracture of left lower leg, initial encounter for closed fracture (principal); G89.18 Other acute postprocedural pain
CPT/HCPCS: 27822; 01480; 64445; 64447; 73600; 76942; C1713; J0665; J0666; J0690; J1100; J2250; J2371; J2405; J2704; J3010; J7120